=== PATIENT | female | born 1960 | race Caucasian/White ===

== ENCOUNTER 2024-09-02 11:46 | Day surgery (SDC) | payer MEDICARE ==
[~2024-09-02] VITALS: Ht 167.6 cm; Wt 66.0 kg
[~2024-09-02 11:46] MED LIST: ALBU8.5H INH; AMOX500C PO; ASPI81TA26 PO; DOCU100C16 PO; ESOM40CA35 PO; LIVA1TAB PO; LORA-1041 PO; LR 1,000 ML IV SCH; LUSP25VI SQ; MIDAZOLAM INJ 2MG/2ML VIAL As Ordered ONE; ONDA-84 PO; SUCR1TAB56 PO; VITA200016 PO
[2024-09-02] MEDS: TETRACAINE 0.5% OPHTH SOLN 4ML OS SCH (13:12)
[2024-09-02] MEDS: CYCLOPENTOLATE 1% OPHTH SOLN 2ML BTL OS SCH (13:12)
[2024-09-02] MEDS: PHENYLEPHRINE 2.5% OPHTH SOL 2ML OS SCH (13:12)
[2024-09-02] MEDS: FLURBIPROFEN 0.03% OPHTH SOLN 2.5 ML OS SCH (13:12)
[2024-09-02] MEDS: LIDOCAINE 1% SDV 5ML VIAL As Ordered ONE (14:19)
[2024-09-02] MEDS: CEFUROXIME 1MG/0.1ML INTRACAMERAL INJ As Ordered ONE (14:20)
[2024-09-02] MEDS ORDERED: fentaNYL 100 MCG/2 ML INJECTION As Ordered ONE (14:20)
[2024-09-02] MEDS ORDERED: ONDANSETRON 4MG 2ML VIAL As Ordered ONE (14:21)
[2024-09-02 14:42] VITALS: BP 142/68; TEMP 97.2; O2SAT 96
== END 2024-09-02 15:05 | disposition home or self-care (01) ==
LOC: M SDC 11:46
PROVIDERS: ATTEND Ophthalmology
DX: H25.12 Age-related nuclear cataract, left eye (principal); M19.90 Unspecified osteoarthritis, unspecified site; Z88.8 Allergy status to other drugs, medicaments and biological substances; Z88.4 Allergy status to anesthetic agent; Z88.1 Allergy status to other antibiotic agents; Z79.899 Other long term (current) drug therapy; F17.210 Nicotine dependence, cigarettes, uncomplicated
CPT/HCPCS: 66984; J0697; J2250; J2405; J3010; V2632

== ENCOUNTER 2024-09-30 12:15 | Day surgery (SDC) | payer MEDICARE ==
[~2024-09-30] VITALS: Ht 167.6 cm; Wt 65.8 kg
[~2024-09-30 12:15] MED LIST changes: -MIDAZOLAM INJ 2MG/2ML VIAL As Ordered ONE
[2024-09-30] MEDS ORDERED: LIDOCAINE 1% SDV 5ML VIAL SC PRN (12:45)
[2024-09-30] MEDS: CYCLOPENTOLATE 1% OPHTH SOLN 2ML BTL OD SCH (12:54)
[2024-09-30] MEDS: TETRACAINE 0.5% OPHTH SOLN 4ML OD SCH (12:54)
[2024-09-30] MEDS: FLURBIPROFEN 0.03% OPHTH SOLN 2.5 ML OD SCH (12:54)
[2024-09-30] MEDS: PHENYLEPHRINE 2.5% OPHTH SOL 2ML OD SCH (12:54)
[2024-09-30] MEDS ORDERED: ONDANSETRON 4MG 2ML VIAL As Ordered ONE (13:53)
[2024-09-30] MEDS ORDERED: fentaNYL 100 MCG/2 ML INJECTION As Ordered ONE (13:53)
[2024-09-30] MEDS: LIDOCAINE 1% SDV 5ML VIAL As Ordered ONE (14:06)
[2024-09-30] MEDS: CEFUROXIME 1MG/0.1ML INTRACAMERAL INJ As Ordered ONE (14:07)
[2024-09-30 14:30] VITALS: BP 130/79; TEMP 97.3; O2SAT 99
== END 2024-09-30 14:35 | disposition home or self-care (01) ==
LOC: M SDC 12:15
PROVIDERS: ATTEND Ophthalmology
DX: H25.11 Age-related nuclear cataract, right eye (principal); E78.00 Pure hypercholesterolemia, unspecified; J44.9 Chronic obstructive pulmonary disease, unspecified; D46.9 Myelodysplastic syndrome, unspecified; K21.9 Gastro-esophageal reflux disease without esophagitis; F17.210 Nicotine dependence, cigarettes, uncomplicated; Z79.82 Long term (current) use of aspirin; Z79.899 Other long term (current) drug therapy; Z90.89 Acquired absence of other organs; Z98.42 Cataract extraction status, left eye; Z88.8 Allergy status to other drugs, medicaments and biological substances; Z88.4 Allergy status to anesthetic agent; Z88.1 Allergy status to other antibiotic agents
CPT/HCPCS: 66984; J0697; J2405; J3010; V2632